=== PATIENT | male | born 1940 | race Caucasian/White ===

== ENCOUNTER 2024-07-07 09:21 | Inpatient (IN) | payer MEDICARE ==
[~2024-07-07] VITALS: Ht 167.6 cm; Wt 95.3 kg
[2024-07-07] VITALS (20 sets, daily range): BP systolic 85–145; BP diastolic 53–79; PULSE 83–104; RESP 18–41; TEMP 97.6–98.7; O2SAT 73–100
[2024-07-07] MEDS: ALBUTEROL/IPRATROPIUM 3 ML NEB NEB ONE (09:55)
[2024-07-07] MEDS: DEXAMETHASONE SOD PHOS 10 MG/1 ML VIAL IV ONE (09:57)
[2024-07-07 10:22] LABS: BASOPHILS % 0.2 % (0.0-1.0); HEMATOCRIT 33.8 % (38.2-49.6); HEMOGLOBIN 11.5 g/dL (14.0-18.0); LYMPHOCYTES # (AUTO) 0.8 (1.0-3.2); LYMPHOCYTES % 5.8 % (18.0-39.1); MEAN CORPUSCULAR HEMOGLOBIN 31.9 pg (28-32); MEAN CORPUSCULAR VOLUME 93.6 fL (81-99); MONOCYTES # (AUTO) 0.9 (0.2-0.8); MONOCYTES % 6.1 % (4.4-11.3); NEUTROPHILS # (AUTO) 12.4 (2.1-6.9); NEUTROPHILS % 85.9 % (38.7-80.0); PLATELET COUNT 181 x10e3/uL (140-360); RED BLOOD COUNT 3.61 x10e6/uL (4.3-5.7); RED CELL DISTRIBUTION WIDTH 14.9 % (11.7-14.4); WHITE BLOOD COUNT 14.47 x10e3/uL (4.8-10.8)
[2024-07-07 10:33] LABS: CORONAVIRUS COVID-19 AG NEGATIVE (NEGATIVE); INFLUENZA A AG NEGATIVE (NEGATIVE); INFLUENZA B AG NEGATIVE (NEGATIVE)
[2024-07-07 11:31] LABS: ALBUMIN 2.8 g/dL (3.5-5.0); ALBUMIN/GLOBULIN RATIO 0.7 (0.8-2.0); ANION GAP 14.1 mmol/L (8-16); BILIRUBIN,TOTAL 0.7 mg/dL (0.2-1.2); CALCIUM 9.7 mg/dL (8.4-10.2); CREATININE, SERUM 1.57 mg/dL (0.72-1.25); TOTAL PROTEIN 6.7 g/dL (6.5-8.1)
[2024-07-07 11:37] LABS: TROPONIN I 0.01 ng/mL (0-0.300)
[2024-07-07 11:41] LABS: POTASSIUM 3.1 mmol/L (3.5-5.1)
[2024-07-07] MEDS: FUROSEMIDE INJ 10 MG/ML 4 ML VIAL IV ONE (12:05)
[2024-07-07] MEDS: CEFTRIAXONE 2 GM in SODIUM CHLORIDE 0.9% 100 ML IV SCH (12:11)
[2024-07-07] MEDS ORDERED: IOPAMIDOL 370 MG/ML 100 ML INFUS..BTL INJ ONE (12:21)
[2024-07-07] MEDS ORDERED: VECURONIUM BROMIDE FOR INJ 20 MG VIAL ONE (12:55)
[2024-07-07] MEDS ORDERED: ETOMIDATE 2 MG/ML 10 ML INJ IV ONE (12:55)
[2024-07-07] MEDS: Doxycycline IV 100 MG in SODIUM CHLORIDE 0.9% 100 ML IV SCH (14:05)
[2024-07-07] MEDS: ALBUTEROL/IPRATROPIUM 3 ML NEB NEB PRN (15:54)
[2024-07-07] MEDS: POTASSIUM CHLORIDE 10MEQ EA PO ONE (18:07)
[2024-07-07] MEDS ORDERED: GUAIFENESIN 200 MG/10 ML UDC PO PRN (18:45)
[2024-07-07] MEDS ORDERED: NIFEDIPINE ER30 MG PO (19:34)
[2024-07-07] MEDS ORDERED: SIMPONI50 MG/0.5 SQ (19:34)
[2024-07-07] MEDS ORDERED: FLOMAX0.4 MG PO (19:34)
[2024-07-07] MEDS ORDERED: VENTOLIN HFA18 GM INH (19:34)
[2024-07-07] MEDS ORDERED: DETROL LA4 MG PO (19:34)
[2024-07-07] MEDS ORDERED: SULFASALAZINE500 MG PO (19:34)
[2024-07-07] MEDS ORDERED: MONTELUKAST SOD10 MG PO (19:34)
[2024-07-07] MEDS ORDERED: ASPIRIN81 MG PO (19:34)
[2024-07-07] MEDS ORDERED: OMEPRAZOLE40 MG PO (19:34)
[2024-07-07] MEDS ORDERED: SIMVASTATIN20 MG PO (19:34)
[2024-07-07] MEDS: FUROSEMIDE INJ 10 MG/ML 2 ML VIAL IV ONE (19:47)
[2024-07-07] MEDS: MAGNESIUM SULFATE 2GM/50ML 50 ML IV ONE (21:14)
[2024-07-07] MEDS ORDERED: ACETAMINOPHEN 325 MG TAB PO PRN (21:15)
[2024-07-07] MEDS ORDERED: BISACODYL 10 MG SUPP PR PRN (21:15)
[2024-07-07] MEDS ORDERED: ONDANSETRON HCL INJ 2MG/ML 2ML 2 MG/ML VIAL IV PRN (21:15)
[2024-07-08] VITALS (73 sets, daily range): BP systolic 84–152; BP diastolic 54–80; PULSE 52–122; RESP 17–28; TEMP 96.7–98.7; O2SAT 87–100
[2024-07-08 00:07] LABS: ABG HCO3 19 mmol/L (22-26); ABG PCO2 44 mmHg (35-45); ABG PH 7.25 (7.35-7.45); ABG PO2 83 mmHg (80-105); ABG TCO2 21
[2024-07-08] MEDS ORDERED: DEXTROSE 50% SYRINGE 50 ML IV PRN (00:45)
[2024-07-08] MEDS ORDERED: MELATONIN 3 MG TAB PO PRN (00:45)
[2024-07-08] MEDS ORDERED: METHYLPREDNISOLONE SOD SUCC 1,000 MG/8 ML VIAL IV SCH (00:45)
[2024-07-08] MEDS: SODIUM CHLORIDE 0.9% 1000ML 1,000 ML ONE (00:48)
[2024-07-08] MEDS: HEPARIN SOD (PORCINE) 5,000 UNIT/ML VIAL SC SCH (00:49)
[2024-07-08] MEDS: Vancomycin IV 1 GM in SODIUM CHLORIDE 0.9% 250ML 250 ML IV ONE (01:21)
[2024-07-08] MEDS: SODIUM CHLORIDE 0.9% 1000ML 1,000 ML IV SCH ×2 (01:22→17:27)
[2024-07-08] MEDS: PROPOFOL IV EMULSION 10MG/ML 100 ML IV PRN (02:04)
[2024-07-08] MEDS: METHYLPREDNISOLONE SOD SUCC 125 MG/2ML VIAL ONE (02:07)
[2024-07-08] MEDS: INSULIN REGULAR, HUMAN 100 UNIT/1 ML SQ SCH (06:54)
[2024-07-08 07:02] LABS: BASOPHILS # (AUTO) 0.1 (0.0-0.1); BASOPHILS % 0.4 % (0.0-1.0); EOSINOPHILS % 0.1 % (0.0-6.0); HEMATOCRIT 30.2 % (38.2-49.6); LYMPHOCYTES # (AUTO) 0.7 (1.0-3.2); LYMPHOCYTES % 4.7 % (18.0-39.1); MEAN CORPUSCULAR HEMOGLOBIN 31.5 pg (28-32); MEAN CORPUSCULAR HGB CONC 33.1 g/dL (31-35); MEAN CORPUSCULAR VOLUME 95.3 fL (81-99); MONOCYTES # (AUTO) 0.7 (0.2-0.8); MONOCYTES % 4.4 % (4.4-11.3); NEUTROPHILS # (AUTO) 13.8 (2.1-6.9); PLATELET COUNT 223 x10e3/uL (140-360); RED BLOOD COUNT 3.17 x10e6/uL (4.3-5.7); RED CELL DISTRIBUTION WIDTH 14.3 % (11.7-14.4); WHITE BLOOD COUNT 15.54 x10e3/uL (4.8-10.8)
[2024-07-08 07:24] LABS: ANION GAP 12.2 mmol/L (8-16); CALCIUM 9.3 mg/dL (8.4-10.2); CREATININE, SERUM 1.7 mg/dL (0.72-1.25); POTASSIUM 3.2 mmol/L (3.5-5.1)
[2024-07-08 07:27] LABS: ABG HCO3 19 mmol/L (22-26); ABG PCO2 37 mmHg (35-45); ABG PH 7.32 (7.35-7.45); ABG PO2 99 mmHg (80-105); ABG TCO2 20
[2024-07-08] MEDS: LACTATED RINGER'S 1,000 ML INJ ONE (07:46)
[2024-07-08] MEDS: SENNOSIDES 8.6 MG TAB PO SCH (09:00)
[2024-07-08] MEDS: MULTIVITAMINS/MINERALS TAB PO SCH (09:00)
[2024-07-08] MEDS ORDERED: FUROSEMIDE INJ 10 MG/ML 4 ML VIAL IV SCH (09:00)
[2024-07-08] MEDS: DOCUSATE SODIUM 100 MG CAP PO SCH (09:00)
[2024-07-08] MEDS: FAMOTIDINE 20 MG/2 ML VIAL IV SCH (10:13)
[2024-07-08] MEDS: CEFTRIAXONE 2 GM in SODIUM CHLORIDE 0.9% 100 ML IV SCH (17:04)
[2024-07-08] MEDS: MUPIROCIN 2% OINT 22 GM TUBE TOP SCH (17:05)
[2024-07-08] MEDS: LORAZEPAM INJ 2 MG/ML VIAL IV ONE (18:31)
[2024-07-09] VITALS (66 sets, daily range): BP systolic 94–161; BP diastolic 53–83; PULSE 22–91; RESP 16–29; TEMP 97–99.2; O2SAT 85–100
[2024-07-09 06:29] LABS: BASOPHILS % 0.2 % (0.0-1.0); HEMATOCRIT 27.4 % (38.2-49.6); HEMOGLOBIN 9.2 g/dL (14.0-18.0); LYMPHOCYTES % 6.6 % (18.0-39.1); MEAN CORPUSCULAR HEMOGLOBIN 31.5 pg (28-32); MEAN CORPUSCULAR HGB CONC 33.6 g/dL (31-35); MEAN CORPUSCULAR VOLUME 93.8 fL (81-99); MONOCYTES # (AUTO) 0.6 (0.2-0.8); MONOCYTES % 3.9 % (4.4-11.3); NEUTROPHILS # (AUTO) 13.6 (2.1-6.9); NEUTROPHILS % 86.2 % (38.7-80.0); PLATELET COUNT 212 x10e3/uL (140-360); RED BLOOD COUNT 2.92 x10e6/uL (4.3-5.7); RED CELL DISTRIBUTION WIDTH 14.4 % (11.7-14.4); WHITE BLOOD COUNT 15.79 x10e3/uL (4.8-10.8)
[2024-07-09 06:41] LABS: ABG HCO3 18 mmol/L (22-26); ABG PCO2 35 mmHg (35-45); ABG PH 7.31 (7.35-7.45); ABG PO2 132 mmHg (80-105); ABG TCO2 19
[2024-07-09 06:43] LABS: ALBUMIN/GLOBULIN RATIO 0.6 (0.8-2.0); ANION GAP 11.3 mmol/L (8-16); BILIRUBIN,TOTAL 0.3 mg/dL (0.2-1.2); CALCIUM 8.9 mg/dL (8.4-10.2); CREATININE, SERUM 1.57 mg/dL (0.72-1.25); TOTAL PROTEIN 5.4 g/dL (6.5-8.1)
[2024-07-09 06:53] LABS: POTASSIUM 3.3 mmol/L (3.5-5.1)
[2024-07-09] MEDS: MULTIVITAMINS/MINERALS TAB NG SCH (08:00)
[2024-07-09] MEDS: DOCUSATE SODIUM LIQD 100 MG/10 ML UDC NG SCH (08:01)
[2024-07-09] MEDS: FAMOTIDINE 20 MG/2 ML VIAL IV SCH (08:01)
[2024-07-09] MEDS: SENNOSIDES 8.6 MG TAB NG SCH (08:01)
[2024-07-09 08:25] LABS: CLARITY,URINE CLOUDY (CLEAR); COLOR,URINE YELLOW (YELLOW); GLUCOSE, URINE NEGATIVE (NEGATIVE); KETONES,URINE NEGATIVE (NEGATIVE); LEUKOCYTE ESTERASE ,URINE NEGATIVE (NEGATIVE); NITRITE,URINE NEGATIVE (NEGATIVE); PH,URINE 5.5 (5 - 7); PROTEIN,URINE DIPSTICK 2+ (NEGATIVE)
[2024-07-09 08:26] LABS: BACTERIA,URINE MODERATE /HPF; BILIRUBIN,URINE NEGATIVE (NEGATIVE); EPITHELIAL CELLS,URINE FEW /LPF; RBC,URINE >50 /HPF (0-5); URINE UROBILINOGEN 0.2 mg/dL (0.2 - 1); WBC,URINE (MAN) 0-5 /HPF (0-5)
[2024-07-09] MEDS: METHYLPREDNISOLONE SOD SUCC 40 MG/ML VIAL 1ML IV SCH (09:29)
[2024-07-09] MEDS: POTASSIUM CHLORIDE 20MEQ/100ML 200 ML IV ONE (09:29)
[2024-07-09] MEDS: SODIUM BICARBONATE 8.4% VIAL 50 ML in SODIUM CHLORIDE 0.45% 1,000 ML IV SCH (10:16)
[2024-07-09 10:17] LABS: ABG HCO3 18 mmol/L (22-26); ABG PCO2 35 mmHg (35-45); ABG PH 7.31 (7.35-7.45); ABG PO2 93 mmHg (80-105); ABG TCO2 19
[2024-07-09 10:20] LABS: ABG HCO3 18 mmol/L (22-26); ABG PCO2 36 mmHg (35-45); ABG PH 7.31 (7.35-7.45); ABG PO2 93 mmHg (80-105); ABG TCO2 19
[2024-07-09 10:52] LABS: EOSINOPHIL SMEAR,URINE NONE SEEN (NONE SEEN)
[2024-07-09 12:29] LABS: ABG HCO3 17 mmol/L (22-26); ABG PCO2 29 mmHg (35-45); ABG PH 7.38 (7.35-7.45); ABG PO2 52 mmHg (80-105); ABG TCO2 18
[2024-07-09] MEDS: SODIUM CHLORIDE 0.9% 1000ML 1,000 ML IV SCH (17:05)
[2024-07-09 21:16] LABS: C-REACTIVE PROTEIN 175 mg/L (0-10); JO-1 ANTIBODY <0.2 AI (0.0-0.9)
[2024-07-10] VITALS (30 sets, daily range): BP systolic 100–184; BP diastolic 67–122; PULSE 73–110; RESP 20–44; TEMP 97.8–98.9; O2SAT 75–99
[2024-07-10] MEDS: FENTANYL CITRATE/PF 100MCG/2 ML INJ IV PRN (00:21)
[2024-07-10 07:10] LABS: BASOPHILS # (AUTO) 0.2 (0.0-0.1); BASOPHILS % 0.8 % (0.0-1.0); HEMATOCRIT 31.3 % (38.2-49.6); HEMOGLOBIN 10.6 g/dL (14.0-18.0); LYMPHOCYTES # (AUTO) 1.7 (1.0-3.2); LYMPHOCYTES % 8.6 % (18.0-39.1); MEAN CORPUSCULAR HEMOGLOBIN 31.3 pg (28-32); MEAN CORPUSCULAR HGB CONC 33.9 g/dL (31-35); MEAN CORPUSCULAR VOLUME 92.3 fL (81-99); MONOCYTES # (AUTO) 0.5 (0.2-0.8); MONOCYTES % 2.6 % (4.4-11.3); NEUTROPHILS # (AUTO) 15.9 (2.1-6.9); PLATELET COUNT 305 x10e3/uL (140-360); RED BLOOD COUNT 3.39 x10e6/uL (4.3-5.7); RED CELL DISTRIBUTION WIDTH 14.7 % (11.7-14.4)
[2024-07-10 07:30] LABS: ALBUMIN 2.3 g/dL (3.5-5.0); ALBUMIN/GLOBULIN RATIO 0.6 (0.8-2.0); BILIRUBIN,TOTAL 0.4 mg/dL (0.2-1.2); CALCIUM 9.6 mg/dL (8.4-10.2); CREATININE, SERUM 1.31 mg/dL (0.72-1.25); POTASSIUM 3.7 mmol/L (3.5-5.1)
[2024-07-10 07:52] LABS: ANION GAP 13.7 mmol/L (8-16)
[2024-07-10] MEDS: SODIUM BICARBONATE 8.4% VIAL 50 ML in DEXTROSE 5% 1,000 ML IV ONE (11:08)
[2024-07-10 11:31] LABS: ANISOCYTOSIS SLIGHT; BAND NEUTROPHILS % (MANUAL) 4 %; LYMPHOCYTES % (MANUAL) 17 % (19-48); METAMYELOCYTES % (MANUAL) 4 % (0-0); MONOCYTES % (MANUAL) 2 % (3.4-9.0); MYELOCYTES % (MANUAL) 2 % (0-0); NEUTROPHILS % (MANUAL) 69 % (40-74); PLATELET ESTIMATE ADEQUATE; PLATELET MORPHOLOGY COMMENT NORMAL; REACTIVE LYMPHOCYTES 2
[2024-07-10] MEDS: NIFEDIPINE CR 30 MG TAB PO SCH (15:30)
[2024-07-10] MEDS: NIFEDIPINE CR 30 MG TAB PO ONE (17:00)
[2024-07-10] MEDS: DEXMEDETOMIDINE 400MCG/NS100ML 100 ML IV PRN (18:20)
[2024-07-10] MEDS: HYDRALAZINE HCL 20 MG/ML VIAL IV PRN (21:04)
[2024-07-10] MEDS ORDERED: LORAZEPAM INJ 2 MG/ML VIAL IV PRN (21:45)
[2024-07-11] VITALS (71 sets, daily range): BP systolic 71–174; BP diastolic 44–80; PULSE 56–107; RESP 20–45; TEMP 97.4–100.2; O2SAT 89–100
[2024-07-11] MEDS: PROPOFOL IV EMULSION 10 MG/ML 50 ML VIAL IV PRN (04:39)
[2024-07-11 05:50] LABS: ABG HCO3 20 mmol/L (22-26); ABG PCO2 38 mmHg (35-45); ABG PH 7.32 (7.35-7.45); ABG PO2 201 mmHg (80-105); ABG TCO2 21
[2024-07-11 07:00] LABS: BASOPHILS # (AUTO) 0.1 (0.0-0.1); BASOPHILS % 0.5 % (0.0-1.0); EOSINOPHILS % 0.1 % (0.0-6.0); HEMATOCRIT 30.8 % (38.2-49.6); HEMOGLOBIN 10.3 g/dL (14.0-18.0); LYMPHOCYTES # (AUTO) 1.2 (1.0-3.2); LYMPHOCYTES % 7.9 % (18.0-39.1); MEAN CORPUSCULAR HGB CONC 33.4 g/dL (31-35); MEAN CORPUSCULAR VOLUME 92.8 fL (81-99); MONOCYTES # (AUTO) 0.2 (0.2-0.8); MONOCYTES % 1.4 % (4.4-11.3); NEUTROPHILS # (AUTO) 13.2 (2.1-6.9); NEUTROPHILS % 83.9 % (38.7-80.0); PLATELET COUNT 242 x10e3/uL (140-360); RED BLOOD COUNT 3.32 x10e6/uL (4.3-5.7); RED CELL DISTRIBUTION WIDTH 14.6 % (11.7-14.4); WHITE BLOOD COUNT 15.73 x10e3/uL (4.8-10.8)
[2024-07-11 07:28] LABS: ALBUMIN 1.9 g/dL (3.5-5.0); ALBUMIN/GLOBULIN RATIO 0.6 (0.8-2.0); ANION GAP 12.9 mmol/L (8-16); BILIRUBIN,TOTAL 0.5 mg/dL (0.2-1.2); CREATININE, SERUM 1.34 mg/dL (0.72-1.25); POTASSIUM 3.9 mmol/L (3.5-5.1); TOTAL PROTEIN 5.1 g/dL (6.5-8.1)
[2024-07-11] MEDS ORDERED: PROPOFOL IV EMULSION 10MG/ML 100 ML ONE (07:37)
[2024-07-11] MEDS: PROPOFOL IV EMULSION 10MG/ML 100 ML IV PRN (08:04)
[2024-07-11] MEDS: MIDAZOLAM HCL 2 MG/2 ML VIAL IV ONE ×3 (08:24→10:11)
[2024-07-11 09:18] LABS: ABG HCO3 19 mmol/L (22-26); ABG PCO2 37 mmHg (35-45); ABG PH 7.32 (7.35-7.45); ABG PO2 99 mmHg (80-105); ABG TCO2 20
[2024-07-11 09:18] LABS: ABG HCO3 19 mmol/L (22-26); ABG PCO2 44 mmHg (35-45); ABG PH 7.25 (7.35-7.45); ABG PO2 83 mmHg (80-105); ABG TCO2 21
[2024-07-11 09:19] LABS: ABG HCO3 18 mmol/L (22-26); ABG PCO2 36 mmHg (35-45); ABG PH 7.31 (7.35-7.45); ABG PO2 93 mmHg (80-105); ABG TCO2 19
[2024-07-11 09:19] LABS: ABG HCO3 17 mmol/L (22-26); ABG PCO2 29 mmHg (35-45); ABG PH 7.38 (7.35-7.45); ABG PO2 52 mmHg (80-105); ABG TCO2 18
[2024-07-11 09:19] LABS: ABG HCO3 18 mmol/L (22-26); ABG PCO2 35 mmHg (35-45); ABG PH 7.31 (7.35-7.45); ABG PO2 132 mmHg (80-105); ABG TCO2 19
[2024-07-11] MEDS: NOREPINEPHRINE 8 MG/D5W 250 ML 250 ML IV SCH (09:56)
[2024-07-11] MEDS: SODIUM BICARBONATE 8.4% SYRING 50 ML in DEXTROSE 5% 1,000 ML IV ONE (11:02)
[2024-07-11 11:57] LABS: LYMPHOCYTES % (MANUAL) 4 % (19-48); METAMYELOCYTES % (MANUAL) 3 % (0-0); MONOCYTES % (MANUAL) 1 % (3.4-9.0); MYELOCYTES % (MANUAL) 2 % (0-0); NEUTROPHILS % (MANUAL) 89 % (40-74); PLATELET ESTIMATE ADEQUATE; PLATELET MORPHOLOGY COMMENT NORMAL; PROMYELOCYTES % (MANUAL) 1 % (0-0); RBC MORPHOLOGY COMMENT NORMAL
[2024-07-12] VITALS (93 sets, daily range): BP systolic 89–131; BP diastolic 50–62; PULSE 55–93; RESP 20–28; TEMP 96.2–98.1; O2SAT 99–100
[2024-07-12 06:53] LABS: BASOPHILS # (AUTO) 0.1 (0.0-0.1); BASOPHILS % 0.6 % (0.0-1.0); EOSINOPHILS % 0.1 % (0.0-6.0); HEMOGLOBIN 10.1 g/dL (14.0-18.0); LYMPHOCYTES # (AUTO) 1.6 (1.0-3.2); LYMPHOCYTES % 7.2 % (18.0-39.1); MEAN CORPUSCULAR HEMOGLOBIN 31.8 pg (28-32); MEAN CORPUSCULAR HGB CONC 32.6 g/dL (31-35); MEAN CORPUSCULAR VOLUME 97.5 fL (81-99); MONOCYTES # (AUTO) 0.4 (0.2-0.8); MONOCYTES % 1.6 % (4.4-11.3); NEUTROPHILS # (AUTO) 17.8 (2.1-6.9); PLATELET COUNT 301 x10e3/uL (140-360); RED BLOOD COUNT 3.18 x10e6/uL (4.3-5.7); RED CELL DISTRIBUTION WIDTH 14.9 % (11.7-14.4); WHITE BLOOD COUNT 22.23 x10e3/uL (4.8-10.8)
[2024-07-12 07:26] LABS: ALBUMIN 1.7 g/dL (3.5-5.0); ALBUMIN/GLOBULIN RATIO 0.5 (0.8-2.0); ANION GAP 13.1 mmol/L (8-16); BILIRUBIN,TOTAL 0.3 mg/dL (0.2-1.2); CALCIUM 8.8 mg/dL (8.4-10.2); CREATININE, SERUM 1.84 mg/dL (0.72-1.25); POTASSIUM 4.1 mmol/L (3.5-5.1); TOTAL PROTEIN 5.4 g/dL (6.5-8.1)
[2024-07-12] MEDS: SODIUM BICARBONATE 8.4% SYRING 50 ML in DEXTROSE 5% 1,000 ML IV SCH (07:55)
[2024-07-12 08:49] LABS: ABG HCO3 23 mmol/L (22-26); ABG PCO2 44 mmHg (35-45); ABG PH 7.32 (7.35-7.45); ABG PO2 184 mmHg (80-105); ABG TCO2 24
[2024-07-12 13:19] LABS: BAND NEUTROPHILS % (MANUAL) 1 %; BASOPHILS % (MANUAL) 1 % (0-1.5); LYMPHOCYTES % (MANUAL) 11 % (19-48); MONOCYTES % (MANUAL) 1 % (3.4-9.0); MYELOCYTES % (MANUAL) 2 % (0-0); NEUTROPHILS % (MANUAL) 84 % (40-74); PLATELET ESTIMATE ADEQUATE; PLATELET MORPHOLOGY COMMENT NORMAL; RBC MORPHOLOGY COMMENT NORMAL
[2024-07-12 15:12] LABS: MYCOPLASMA PNEUMO IGG 217 U/mL (0-99); MYCOPLASMA PNEUMO IGM 3302 U/mL (0-769)
[2024-07-12] MEDS: PROPOFOL IV EMULSION 10MG/ML 100 ML ONE (19:11)
[2024-07-13] VITALS (87 sets, daily range): BP systolic 94–146; BP diastolic 46–67; PULSE 55–85; RESP 17–28; TEMP 97.4–98.4; O2SAT 99–100
[2024-07-13 06:37] LABS: BASOPHILS # (AUTO) 0.1 (0.0-0.1); BASOPHILS % 0.4 % (0.0-1.0); EOSINOPHILS % 0.1 % (0.0-6.0); HEMATOCRIT 29.5 % (38.2-49.6); HEMOGLOBIN 9.9 g/dL (14.0-18.0); LYMPHOCYTES # (AUTO) 1.2 (1.0-3.2); LYMPHOCYTES % 6.4 % (18.0-39.1); MEAN CORPUSCULAR HEMOGLOBIN 31.4 pg (28-32); MEAN CORPUSCULAR HGB CONC 33.6 g/dL (31-35); MEAN CORPUSCULAR VOLUME 93.7 fL (81-99); MONOCYTES # (AUTO) 0.5 (0.2-0.8); MONOCYTES % 2.8 % (4.4-11.3); NEUTROPHILS # (AUTO) 14.7 (2.1-6.9); NEUTROPHILS % 79.7 % (38.7-80.0); PLATELET COUNT 302 x10e3/uL (140-360); RED BLOOD COUNT 3.15 x10e6/uL (4.3-5.7); RED CELL DISTRIBUTION WIDTH 14.8 % (11.7-14.4); WHITE BLOOD COUNT 18.39 x10e3/uL (4.8-10.8)
[2024-07-13 07:06] LABS: ABG HCO3 22 mmol/L (22-26); ABG PCO2 42 mmHg (35-45); ABG PH 7.33 (7.35-7.45); ABG PO2 121 mmHg (80-105); ABG TCO2 23
[2024-07-13 08:04] LABS: ALBUMIN 1.7 g/dL (3.5-5.0); ALBUMIN/GLOBULIN RATIO 0.5 (0.8-2.0); ANION GAP 13.3 mmol/L (8-16); BILIRUBIN,TOTAL 0.3 mg/dL (0.2-1.2); CALCIUM 8.8 mg/dL (8.4-10.2); CREATININE, SERUM 1.72 mg/dL (0.72-1.25); POTASSIUM 4.3 mmol/L (3.5-5.1); TOTAL PROTEIN 5.4 g/dL (6.5-8.1)
[2024-07-13] MEDS: FUROSEMIDE INJ 10 MG/ML 4 ML VIAL IV ONE (08:28)
[2024-07-13] MEDS: HEPARIN SOD (PORCINE) 5,000 UNIT/ML VIAL SC SCH (15:19)
[2024-07-14] VITALS (59 sets, daily range): BP systolic 79–177; BP diastolic 42–69; PULSE 53–108; RESP 17–29; TEMP 97.1–98.3; O2SAT 94–100
[2024-07-14 06:53] LABS: BASOPHILS # (AUTO) 0.1 (0.0-0.1); BASOPHILS % 0.3 % (0.0-1.0); EOSINOPHILS % 0.1 % (0.0-6.0); HEMATOCRIT 33.2 % (38.2-49.6); HEMOGLOBIN 11.2 g/dL (14.0-18.0); LYMPHOCYTES # (AUTO) 1.4 (1.0-3.2); LYMPHOCYTES % 9.8 % (18.0-39.1); MEAN CORPUSCULAR HEMOGLOBIN 31.9 pg (28-32); MEAN CORPUSCULAR HGB CONC 33.7 g/dL (31-35); MEAN CORPUSCULAR VOLUME 94.6 fL (81-99); MONOCYTES # (AUTO) 0.5 (0.2-0.8); MONOCYTES % 3.5 % (4.4-11.3); NEUTROPHILS # (AUTO) 10.8 (2.1-6.9); NEUTROPHILS % 75.1 % (38.7-80.0); PLATELET COUNT 322 x10e3/uL (140-360); RED BLOOD COUNT 3.51 x10e6/uL (4.3-5.7); RED CELL DISTRIBUTION WIDTH 14.8 % (11.7-14.4)
[2024-07-14 07:18] LABS: ALBUMIN 1.8 g/dL (3.5-5.0); ALBUMIN/GLOBULIN RATIO 0.4 (0.8-2.0); ANION GAP 15.3 mmol/L (8-16); BILIRUBIN,TOTAL 0.3 mg/dL (0.2-1.2); CALCIUM 8.7 mg/dL (8.4-10.2); CREATININE, SERUM 1.52 mg/dL (0.72-1.25); POTASSIUM 4.3 mmol/L (3.5-5.1); TOTAL PROTEIN 6.1 g/dL (6.5-8.1)
[2024-07-14 08:02] LABS: ABG HCO3 24 mmol/L (22-26); ABG PCO2 38 mmHg (35-45); ABG PH 7.42 (7.35-7.45); ABG PO2 100 mmHg (80-105); ABG TCO2 25
[2024-07-14 11:12] LABS: ABG HCO3 23 mmol/L (22-26); ABG PCO2 41 mmHg (35-45); ABG PH 7.35 (7.35-7.45); ABG PO2 100 mmHg (80-105); ABG TCO2 24
[2024-07-14 18:14] LABS: ABG HCO3 23 mmol/L (22-26); ABG PCO2 40 mmHg (35-45); ABG PH 7.36 (7.35-7.45); ABG PO2 82 mmHg (80-105); ABG TCO2 24
[2024-07-15] VITALS (90 sets, daily range): BP systolic 82–151; BP diastolic 47–105; PULSE 79–109; RESP 18–34; TEMP 96.8–101.3; O2SAT 97–100
[2024-07-15 06:53] LABS: BASOPHILS # (AUTO) 0.1 (0.0-0.1); BASOPHILS % 0.4 % (0.0-1.0); EOSINOPHILS # (AUTO) 0.4 (0.0-0.4); EOSINOPHILS % 2.1 % (0.0-6.0); HEMATOCRIT 33.7 % (38.2-49.6); HEMOGLOBIN 10.9 g/dL (14.0-18.0); LYMPHOCYTES # (AUTO) 2.7 (1.0-3.2); LYMPHOCYTES % 15.8 % (18.0-39.1); MEAN CORPUSCULAR HEMOGLOBIN 31.5 pg (28-32); MEAN CORPUSCULAR HGB CONC 32.3 g/dL (31-35); MEAN CORPUSCULAR VOLUME 97.4 fL (81-99); MONOCYTES # (AUTO) 0.8 (0.2-0.8); MONOCYTES % 4.7 % (4.4-11.3); NEUTROPHILS # (AUTO) 11.3 (2.1-6.9); NEUTROPHILS % 67.4 % (38.7-80.0); PLATELET COUNT 336 x10e3/uL (140-360); RED BLOOD COUNT 3.46 x10e6/uL (4.3-5.7); RED CELL DISTRIBUTION WIDTH 15.1 % (11.7-14.4)
[2024-07-15 07:20] LABS: ALBUMIN 1.8 g/dL (3.5-5.0); ALBUMIN/GLOBULIN RATIO 0.4 (0.8-2.0); BILIRUBIN,TOTAL 0.3 mg/dL (0.2-1.2); CALCIUM 8.6 mg/dL (8.4-10.2); CREATININE, SERUM 1.36 mg/dL (0.72-1.25); TOTAL PROTEIN 5.9 g/dL (6.5-8.1)
[2024-07-15] MEDS: ALBUMIN 5% 0.05 GM/ML BTL IV ONE (07:47)
[2024-07-15] MEDS: METHYLPREDNISOLONE SOD SUCC 40 MG/ML VIAL 1ML IV SCH (08:01)
[2024-07-15 15:15] LABS: CHLAMYDIA TRACHOMATIS IGM <0.8 index (0.0-0.7); CHLAMYDOPHILA PSITTACI IGM <1:10 (Neg:<1:10)
[2024-07-15] MEDS: ACETAMINOPHEN 325 MG/10 ML UDC NG PRN (23:10)
[2024-07-16] VITALS (64 sets, daily range): BP systolic 93–144; BP diastolic 36–71; PULSE 69–102; RESP 18–30; TEMP 97.9–100.3; O2SAT 98–100
[2024-07-16 06:43] LABS: BASOPHILS # (AUTO) 0.1 (0.0-0.1); BASOPHILS % 0.2 % (0.0-1.0); EOSINOPHILS # (AUTO) 0.2 (0.0-0.4); EOSINOPHILS % 0.5 % (0.0-6.0); HEMATOCRIT 32.1 % (38.2-49.6); HEMOGLOBIN 10.6 g/dL (14.0-18.0); LYMPHOCYTES # (AUTO) 1.4 (1.0-3.2); LYMPHOCYTES % 3.9 % (18.0-39.1); MEAN CORPUSCULAR HEMOGLOBIN 31.9 pg (28-32); MEAN CORPUSCULAR VOLUME 96.7 fL (81-99); MONOCYTES # (AUTO) 0.9 (0.2-0.8); MONOCYTES % 2.6 % (4.4-11.3); NEUTROPHILS # (AUTO) 32.7 (2.1-6.9); PLATELET COUNT 311 x10e3/uL (140-360); RED BLOOD COUNT 3.32 x10e6/uL (4.3-5.7); RED CELL DISTRIBUTION WIDTH 15.2 % (11.7-14.4); WHITE BLOOD COUNT 36.78 x10e3/uL (4.8-10.8)
[2024-07-16 07:13] LABS: ANION GAP 15.7 mmol/L (8-16); CALCIUM 9.1 mg/dL (8.4-10.2); CREATININE, SERUM 1.4 mg/dL (0.72-1.25); MAGNESIUM 2.4 MG/DL (1.3-2.1); POTASSIUM 4.7 mmol/L (3.5-5.1)
[2024-07-16] MEDS: METRONIDAZOLE 500MG/NS 100ML 100 ML IV SCH (08:07)
[2024-07-16] MEDS: METHYLPREDNISOLONE SOD SUCC 40 MG/ML VIAL 1ML IV SCH (08:08)
[2024-07-16] MEDS: SODIUM CHLORIDE 0.45% 500 ML IV ONE (09:02)
[2024-07-16] MEDS ORDERED: SUCCINYLCHOLINE CHLORIDE 20 MG/ML 10ML VIAL ONE (09:58)
[2024-07-16] MEDS ORDERED: ETOMIDATE 2 MG/ML 10 ML INJ IV ONE (09:58)
[2024-07-16] MEDS ORDERED: IOPAMIDOL 370 MG/ML 100 ML INFUS..BTL INJ ONE (12:18)
[2024-07-16 14:16] LABS: BAND NEUTROPHILS % (MANUAL) 22 %; LYMPHOCYTES % (MANUAL) 3 % (19-48); MONOCYTES % (MANUAL) 1 % (3.4-9.0); NEUTROPHILS % (MANUAL) 74 % (40-74); PLATELET ESTIMATE ADEQUATE; PLATELET MORPHOLOGY COMMENT NORMAL; RBC MORPHOLOGY COMMENT NORMAL
[2024-07-17] VITALS (37 sets, daily range): BP systolic 98–165; BP diastolic 43–74; PULSE 65–85; RESP 17–31; TEMP 97.7–98.2; O2SAT 98–100
[2024-07-17 07:13] LABS: BASOPHILS % 0.2 % (0.0-1.0); EOSINOPHILS # (AUTO) 0.2 (0.0-0.4); EOSINOPHILS % 0.9 % (0.0-6.0); HEMATOCRIT 29.6 % (38.2-49.6); HEMOGLOBIN 9.4 g/dL (14.0-18.0); LYMPHOCYTES # (AUTO) 1.4 (1.0-3.2); LYMPHOCYTES % 5.6 % (18.0-39.1); MEAN CORPUSCULAR HEMOGLOBIN 31.4 pg (28-32); MEAN CORPUSCULAR HGB CONC 31.8 g/dL (31-35); MONOCYTES # (AUTO) 0.9 (0.2-0.8); MONOCYTES % 3.6 % (4.4-11.3); NEUTROPHILS # (AUTO) 22.3 (2.1-6.9); NEUTROPHILS % 87.3 % (38.7-80.0); PLATELET COUNT 259 x10e3/uL (140-360); RED BLOOD COUNT 2.99 x10e6/uL (4.3-5.7); RED CELL DISTRIBUTION WIDTH 15.3 % (11.7-14.4); WHITE BLOOD COUNT 25.52 x10e3/uL (4.8-10.8)
[2024-07-17 07:37] LABS: ALBUMIN 1.7 g/dL (3.5-5.0); ALBUMIN/GLOBULIN RATIO 0.5 (0.8-2.0); ANION GAP 11.3 mmol/L (8-16); BILIRUBIN,TOTAL 0.4 mg/dL (0.2-1.2); CALCIUM 9.3 mg/dL (8.4-10.2); CREATININE, SERUM 1.32 mg/dL (0.72-1.25); POTASSIUM 4.3 mmol/L (3.5-5.1); TOTAL PROTEIN 5.3 g/dL (6.5-8.1)
[2024-07-18] VITALS (25 sets, daily range): BP systolic 86–139; BP diastolic 41–64; PULSE 61–82; RESP 18–27; TEMP 97.7–98.7; O2SAT 88–100
[2024-07-18 06:07] LABS: BASOPHILS % 0.2 % (0.0-1.0); EOSINOPHILS # (AUTO) 0.1 (0.0-0.4); EOSINOPHILS % 0.4 % (0.0-6.0); HEMATOCRIT 29.1 % (38.2-49.6); HEMOGLOBIN 9.3 g/dL (14.0-18.0); LYMPHOCYTES # (AUTO) 1.5 (1.0-3.2); LYMPHOCYTES % 7.7 % (18.0-39.1); MEAN CORPUSCULAR HEMOGLOBIN 31.2 pg (28-32); MEAN CORPUSCULAR VOLUME 97.7 fL (81-99); MONOCYTES # (AUTO) 1.2 (0.2-0.8); MONOCYTES % 6.1 % (4.4-11.3); NEUTROPHILS # (AUTO) 16.2 (2.1-6.9); NEUTROPHILS % 81.2 % (38.7-80.0); PLATELET COUNT 287 x10e3/uL (140-360); RED BLOOD COUNT 2.98 x10e6/uL (4.3-5.7); RED CELL DISTRIBUTION WIDTH 15.6 % (11.7-14.4); WHITE BLOOD COUNT 19.89 x10e3/uL (4.8-10.8)
[2024-07-18 06:34] LABS: ALBUMIN 1.8 g/dL (3.5-5.0); ALBUMIN/GLOBULIN RATIO 0.5 (0.8-2.0); ANION GAP 12.8 mmol/L (8-16); BILIRUBIN,TOTAL 0.4 mg/dL (0.2-1.2); CALCIUM 9.4 mg/dL (8.4-10.2); CREATININE, SERUM 1.45 mg/dL (0.72-1.25); POTASSIUM 4.8 mmol/L (3.5-5.1); TOTAL PROTEIN 5.5 g/dL (6.5-8.1)
[2024-07-18 07:41] LABS: ABG HCO3 23 mmol/L (22-26); ABG PCO2 40 mmHg (35-45); ABG PH 7.36 (7.35-7.45); ABG PO2 82 mmHg (80-105); ABG TCO2 24
[2024-07-18 07:50] LABS: ABG HCO3 23 mmol/L (22-26); ABG PCO2 41 mmHg (35-45); ABG PH 7.35 (7.35-7.45); ABG PO2 100 mmHg (80-105); ABG TCO2 24
[2024-07-18 07:50] LABS: ABG HCO3 20 mmol/L (22-26); ABG PCO2 38 mmHg (35-45); ABG PH 7.32 (7.35-7.45); ABG PO2 201 mmHg (80-105); ABG TCO2 21
[2024-07-18 07:50] LABS: ABG HCO3 24 mmol/L (22-26); ABG PCO2 38 mmHg (35-45); ABG PH 7.42 (7.35-7.45); ABG PO2 100 mmHg (80-105); ABG TCO2 25
[2024-07-18 07:50] LABS: ABG HCO3 23 mmol/L (22-26); ABG PCO2 44 mmHg (35-45); ABG PH 7.32 (7.35-7.45); ABG PO2 184 mmHg (80-105); ABG TCO2 24
[2024-07-18 07:50] LABS: ABG HCO3 22 mmol/L (22-26); ABG PCO2 42 mmHg (35-45); ABG PH 7.33 (7.35-7.45); ABG PO2 121 mmHg (80-105); ABG TCO2 23
[2024-07-18 08:23] LABS: ABG HCO3 21 mmol/L (22-26); ABG PCO2 44 mmHg (35-45); ABG PO2 70 mmHg (80-105); ABG TCO2 23
[2024-07-18] MEDS: PROPOFOL IV EMULSION 10MG/ML 100 ML IV PRN (08:55)
[2024-07-18] MEDS ORDERED: CEFEPIME HCL 1 GM VIAL ONE (19:54)
[2024-07-19] VITALS (25 sets, daily range): BP systolic 94–167; BP diastolic 47–112; PULSE 60–86; RESP 18–29; TEMP 97.6–98.3; O2SAT 95–100
[2024-07-19 05:35] LABS: ABG HCO3 21 mmol/L (22-26); ABG PCO2 44 mmHg (35-45); ABG PO2 70 mmHg (80-105); ABG TCO2 23
[2024-07-19 07:03] LABS: BASOPHILS % 0.3 % (0.0-1.0); EOSINOPHILS # (AUTO) 0.2 (0.0-0.4); EOSINOPHILS % 1.4 % (0.0-6.0); HEMATOCRIT 27.7 % (38.2-49.6); LYMPHOCYTES # (AUTO) 1.6 (1.0-3.2); LYMPHOCYTES % 11.5 % (18.0-39.1); MEAN CORPUSCULAR HEMOGLOBIN 32.3 pg (28-32); MEAN CORPUSCULAR HGB CONC 32.5 g/dL (31-35); MEAN CORPUSCULAR VOLUME 99.3 fL (81-99); MONOCYTES # (AUTO) 1.2 (0.2-0.8); MONOCYTES % 8.6 % (4.4-11.3); NEUTROPHILS % 72.8 % (38.7-80.0); PLATELET COUNT 266 x10e3/uL (140-360); RED BLOOD COUNT 2.79 x10e6/uL (4.3-5.7); RED CELL DISTRIBUTION WIDTH 15.6 % (11.7-14.4); WHITE BLOOD COUNT 13.78 x10e3/uL (4.8-10.8)
[2024-07-19 07:16] LABS: ALBUMIN 1.6 g/dL (3.5-5.0); ALBUMIN/GLOBULIN RATIO 0.5 (0.8-2.0); ANION GAP 13.8 mmol/L (8-16); BILIRUBIN,TOTAL 0.3 mg/dL (0.2-1.2); CALCIUM 7.6 mg/dL (8.4-10.2); CREATININE, SERUM 1.13 mg/dL (0.72-1.25); POTASSIUM 3.8 mmol/L (3.5-5.1)
[2024-07-19 08:17] LABS: ABG HCO3 21 mmol/L (22-26); ABG PCO2 44 mmHg (35-45); ABG PH 7.28 (7.35-7.45); ABG PO2 99 mmHg (80-105); ABG TCO2 22
[2024-07-19] MEDS: SODIUM BICARBONATE 8.4% VIAL 50 ML in SODIUM CHLORIDE 0.45% 1,000 ML IV ONE (09:19)
[2024-07-19] MEDS: PROPOFOL IV EMULSION 10MG/ML 100 ML IV PRN (18:14)
[2024-07-20] VITALS (27 sets, daily range): BP systolic 91–128; BP diastolic 45–66; PULSE 57–88; RESP 18–30; TEMP 98–98.9; O2SAT 97–100
[2024-07-20 06:39] LABS: BASOPHILS % 0.3 % (0.0-1.0); EOSINOPHILS # (AUTO) 0.2 (0.0-0.4); EOSINOPHILS % 1.3 % (0.0-6.0); HEMOGLOBIN 8.9 g/dL (14.0-18.0); LYMPHOCYTES # (AUTO) 1.2 (1.0-3.2); LYMPHOCYTES % 9.2 % (18.0-39.1); MEAN CORPUSCULAR HEMOGLOBIN 31.6 pg (28-32); MEAN CORPUSCULAR HGB CONC 31.8 g/dL (31-35); MEAN CORPUSCULAR VOLUME 99.3 fL (81-99); MONOCYTES # (AUTO) 1.2 (0.2-0.8); MONOCYTES % 9.7 % (4.4-11.3); NEUTROPHILS # (AUTO) 9.5 (2.1-6.9); NEUTROPHILS % 74.3 % (38.7-80.0); PLATELET COUNT 248 x10e3/uL (140-360); RED BLOOD COUNT 2.82 x10e6/uL (4.3-5.7); RED CELL DISTRIBUTION WIDTH 15.5 % (11.7-14.4); WHITE BLOOD COUNT 12.77 x10e3/uL (4.8-10.8)
[2024-07-20 07:14] LABS: ALBUMIN 1.8 g/dL (3.5-5.0); ALBUMIN/GLOBULIN RATIO 0.5 (0.8-2.0); ANION GAP 12.6 mmol/L (8-16); BILIRUBIN,TOTAL 0.3 mg/dL (0.2-1.2); CALCIUM 8.2 mg/dL (8.4-10.2); CREATININE, SERUM 1.1 mg/dL (0.72-1.25); POTASSIUM 4.6 mmol/L (3.5-5.1); TOTAL PROTEIN 5.4 g/dL (6.5-8.1)
[2024-07-20] MEDS: ALBUMIN 25% 25GM 100ML 0.25 GM/ML BTL IV ONE (08:16)
[2024-07-20] MEDS: DEXMEDETOMIDINE 400MCG/NS100ML 100 ML IV PRN (10:54)
[2024-07-20 14:41] LABS: ABG HCO3 22 mmol/L (22-26); ABG PCO2 44 mmHg (35-45); ABG PH 7.31 (7.35-7.45); ABG PO2 109 mmHg (80-105); ABG TCO2 23
[2024-07-21] VITALS (32 sets, daily range): BP systolic 107–151; BP diastolic 47–63; PULSE 66–89; RESP 19–28; TEMP 98.5–99.8; O2SAT 99–100
[2024-07-21 07:07] LABS: BASOPHILS # (AUTO) 0.1 (0.0-0.1); BASOPHILS % 0.4 % (0.0-1.0); EOSINOPHILS # (AUTO) 0.2 (0.0-0.4); EOSINOPHILS % 1.7 % (0.0-6.0); HEMATOCRIT 28.7 % (38.2-49.6); LYMPHOCYTES # (AUTO) 1.7 (1.0-3.2); LYMPHOCYTES % 11.9 % (18.0-39.1); MEAN CORPUSCULAR HGB CONC 31.4 g/dL (31-35); MONOCYTES # (AUTO) 1.3 (0.2-0.8); MONOCYTES % 9.3 % (4.4-11.3); NEUTROPHILS # (AUTO) 10.1 (2.1-6.9); NEUTROPHILS % 71.7 % (38.7-80.0); PLATELET COUNT 217 x10e3/uL (140-360); RED CELL DISTRIBUTION WIDTH 15.6 % (11.7-14.4); WHITE BLOOD COUNT 14.15 x10e3/uL (4.8-10.8)
[2024-07-21 07:41] LABS: ALBUMIN 2.1 g/dL (3.5-5.0); ALBUMIN/GLOBULIN RATIO 0.6 (0.8-2.0); ANION GAP 13.6 mmol/L (8-16); BILIRUBIN,TOTAL 0.5 mg/dL (0.2-1.2); CALCIUM 8.4 mg/dL (8.4-10.2); CREATININE, SERUM 1.19 mg/dL (0.72-1.25); POTASSIUM 4.6 mmol/L (3.5-5.1); TOTAL PROTEIN 5.4 g/dL (6.5-8.1)
[2024-07-21] MEDS: SODIUM BICARBONATE 8.4% VIAL 50 ML in SODIUM CHLORIDE 0.45% 1,000 ML IV ONE (17:41)
[2024-07-22] VITALS (50 sets, daily range): BP systolic 114–151; BP diastolic 52–74; PULSE 67–88; RESP 17–27; TEMP 97.8–99.2; O2SAT 98–100
[2024-07-22 06:28] LABS: BASOPHILS % 0.3 % (0.0-1.0); EOSINOPHILS # (AUTO) 0.2 (0.0-0.4); EOSINOPHILS % 1.5 % (0.0-6.0); HEMATOCRIT 28.7 % (38.2-49.6); HEMOGLOBIN 9.1 g/dL (14.0-18.0); LYMPHOCYTES # (AUTO) 1.1 (1.0-3.2); LYMPHOCYTES % 8.2 % (18.0-39.1); MEAN CORPUSCULAR HEMOGLOBIN 31.4 pg (28-32); MEAN CORPUSCULAR HGB CONC 31.7 g/dL (31-35); MONOCYTES % 7.7 % (4.4-11.3); NEUTROPHILS # (AUTO) 10.6 (2.1-6.9); NEUTROPHILS % 78.3 % (38.7-80.0); PLATELET COUNT 184 x10e3/uL (140-360); RED CELL DISTRIBUTION WIDTH 15.7 % (11.7-14.4); WHITE BLOOD COUNT 13.56 x10e3/uL (4.8-10.8)
[2024-07-22 06:44] LABS: ALBUMIN 1.9 g/dL (3.5-5.0); ALBUMIN/GLOBULIN RATIO 0.5 (0.8-2.0); ANION GAP 12.1 mmol/L (8-16); BILIRUBIN,TOTAL 0.4 mg/dL (0.2-1.2); CALCIUM 9.4 mg/dL (8.4-10.2); CREATININE, SERUM 1.28 mg/dL (0.72-1.25); POTASSIUM 5.1 mmol/L (3.5-5.1); TOTAL PROTEIN 5.9 g/dL (6.5-8.1)
[2024-07-22] MEDS: SODIUM CHLORIDE 0.45% 1,000 ML IV ONE (09:23)
[2024-07-23] VITALS (30 sets, daily range): BP systolic 99–124; BP diastolic 45–60; PULSE 65–84; RESP 14–26; TEMP 97.2–99.2; O2SAT 99–100
[2024-07-23 07:17] LABS: BASOPHILS % 0.3 % (0.0-1.0); EOSINOPHILS # (AUTO) 0.3 (0.0-0.4); HEMATOCRIT 28.9 % (38.2-49.6); HEMOGLOBIN 8.9 g/dL (14.0-18.0); LYMPHOCYTES # (AUTO) 1.3 (1.0-3.2); LYMPHOCYTES % 10.5 % (18.0-39.1); MEAN CORPUSCULAR HEMOGLOBIN 30.8 pg (28-32); MEAN CORPUSCULAR HGB CONC 30.8 g/dL (31-35); MONOCYTES # (AUTO) 0.9 (0.2-0.8); MONOCYTES % 6.9 % (4.4-11.3); NEUTROPHILS # (AUTO) 9.6 (2.1-6.9); NEUTROPHILS % 76.9 % (38.7-80.0); PLATELET COUNT 172 x10e3/uL (140-360); RED BLOOD COUNT 2.89 x10e6/uL (4.3-5.7); RED CELL DISTRIBUTION WIDTH 15.9 % (11.7-14.4); WHITE BLOOD COUNT 12.54 x10e3/uL (4.8-10.8)
[2024-07-23 07:30] LABS: ALBUMIN/GLOBULIN RATIO 0.5 (0.8-2.0); ANION GAP 11.8 mmol/L (8-16); BILIRUBIN,TOTAL 0.4 mg/dL (0.2-1.2); CALCIUM 8.9 mg/dL (8.4-10.2); CREATININE, SERUM 1.43 mg/dL (0.72-1.25); POTASSIUM 4.8 mmol/L (3.5-5.1); TOTAL PROTEIN 5.8 g/dL (6.5-8.1)
[2024-07-23] MEDS: SODIUM CHLORIDE 0.45% 1,000 ML IV ONE (08:14)
[2024-07-23 10:31] LABS: ABG PCO2 36 mmHg (35-45); ABG PH 7.39 (7.35-7.45)
[2024-07-23 10:32] LABS: ABG HCO3 22 mmol/L (22-26); ABG PO2 134 mmHg (80-105); ABG TCO2 23
[2024-07-23] MEDS: DEXTROSE 5% 1,000 ML IV SCH (11:08)
[2024-07-23] MEDS: ENOXAPARIN SOD INJ 40 MG/0.4 ML SYR SC SCH (17:01)
[2024-07-24] VITALS (24 sets, daily range): BP systolic 103–129; BP diastolic 47–62; PULSE 66–83; RESP 15–26; TEMP 97.1–98.5; O2SAT 100
[2024-07-24 06:28] LABS: BASOPHILS % 0.3 % (0.0-1.0); EOSINOPHILS # (AUTO) 0.3 (0.0-0.4); EOSINOPHILS % 2.8 % (0.0-6.0); HEMATOCRIT 26.9 % (38.2-49.6); HEMOGLOBIN 8.3 g/dL (14.0-18.0); LYMPHOCYTES # (AUTO) 1.4 (1.0-3.2); LYMPHOCYTES % 13.1 % (18.0-39.1); MEAN CORPUSCULAR HEMOGLOBIN 31.1 pg (28-32); MEAN CORPUSCULAR HGB CONC 30.9 g/dL (31-35); MEAN CORPUSCULAR VOLUME 100.7 fL (81-99); MONOCYTES # (AUTO) 0.7 (0.2-0.8); MONOCYTES % 6.5 % (4.4-11.3); NEUTROPHILS # (AUTO) 7.9 (2.1-6.9); NEUTROPHILS % 74.9 % (38.7-80.0); PLATELET COUNT 128 x10e3/uL (140-360); RED BLOOD COUNT 2.67 x10e6/uL (4.3-5.7); RED CELL DISTRIBUTION WIDTH 15.6 % (11.7-14.4); WHITE BLOOD COUNT 10.59 x10e3/uL (4.8-10.8)
[2024-07-24 06:46] LABS: ALBUMIN 1.7 g/dL (3.5-5.0); ALBUMIN/GLOBULIN RATIO 0.5 (0.8-2.0); ANION GAP 9.2 mmol/L (8-16); BILIRUBIN,TOTAL 0.3 mg/dL (0.2-1.2); CALCIUM 8.6 mg/dL (8.4-10.2); CREATININE, SERUM 1.49 mg/dL (0.72-1.25); POTASSIUM 4.2 mmol/L (3.5-5.1); TOTAL PROTEIN 5.4 g/dL (6.5-8.1)
[2024-07-24] MEDS: NYSTATIN SUSPENSION 5 ML UDC PO SCH (13:58)
[2024-07-25] VITALS (24 sets, daily range): BP systolic 107–155; BP diastolic 50–110; PULSE 68–91; RESP 17–28; TEMP 96.5–98; O2SAT 100
[2024-07-25 05:34] LABS: ABG HCO3 22 mmol/L (22-26); ABG PCO2 36 mmHg (35-45); ABG PH 7.39 (7.35-7.45); ABG PO2 134 mmHg (80-105); ABG TCO2 23
[2024-07-25 05:35] LABS: ABG HCO3 22 mmol/L (22-26); ABG PCO2 44 mmHg (35-45); ABG PH 7.31 (7.35-7.45); ABG PO2 109 mmHg (80-105); ABG TCO2 23
[2024-07-25 05:35] LABS: ABG HCO3 21 mmol/L (22-26); ABG PCO2 44 mmHg (35-45); ABG PH 7.28 (7.35-7.45); ABG PO2 99 mmHg (80-105); ABG TCO2 22
[2024-07-25 06:39] LABS: BASOPHILS % 0.2 % (0.0-1.0); EOSINOPHILS # (AUTO) 0.4 (0.0-0.4); EOSINOPHILS % 3.9 % (0.0-6.0); HEMATOCRIT 27.5 % (38.2-49.6); HEMOGLOBIN 8.7 g/dL (14.0-18.0); LYMPHOCYTES # (AUTO) 1.5 (1.0-3.2); LYMPHOCYTES % 14.3 % (18.0-39.1); MEAN CORPUSCULAR HEMOGLOBIN 31.3 pg (28-32); MEAN CORPUSCULAR HGB CONC 31.6 g/dL (31-35); MEAN CORPUSCULAR VOLUME 98.9 fL (81-99); MONOCYTES # (AUTO) 0.6 (0.2-0.8); MONOCYTES % 5.9 % (4.4-11.3); NEUTROPHILS # (AUTO) 7.5 (2.1-6.9); NEUTROPHILS % 73.7 % (38.7-80.0); PLATELET COUNT 137 x10e3/uL (140-360); RED BLOOD COUNT 2.78 x10e6/uL (4.3-5.7); RED CELL DISTRIBUTION WIDTH 15.3 % (11.7-14.4); WHITE BLOOD COUNT 10.11 x10e3/uL (4.8-10.8)
[2024-07-25 07:33] LABS: ALBUMIN 1.8 g/dL (3.5-5.0); ALBUMIN/GLOBULIN RATIO 0.5 (0.8-2.0); ANION GAP 10.7 mmol/L (8-16); BILIRUBIN,TOTAL 0.5 mg/dL (0.2-1.2); CALCIUM 9.2 mg/dL (8.4-10.2); CREATININE, SERUM 1.5 mg/dL (0.72-1.25); POTASSIUM 4.7 mmol/L (3.5-5.1); TOTAL PROTEIN 5.8 g/dL (6.5-8.1)
[2024-07-26] VITALS (28 sets, daily range): BP systolic 114–151; BP diastolic 46–74; PULSE 67–93; RESP 17–28; TEMP 97.9–99.6; O2SAT 98–100
[2024-07-26 07:12] LABS: BASOPHILS # (AUTO) 0.1 (0.0-0.1); BASOPHILS % 0.4 % (0.0-1.0); EOSINOPHILS # (AUTO) 0.4 (0.0-0.4); EOSINOPHILS % 2.9 % (0.0-6.0); HEMOGLOBIN 9.3 g/dL (14.0-18.0); LYMPHOCYTES % 8.2 % (18.0-39.1); MEAN CORPUSCULAR HEMOGLOBIN 31.3 pg (28-32); MONOCYTES # (AUTO) 0.7 (0.2-0.8); MONOCYTES % 5.7 % (4.4-11.3); NEUTROPHILS # (AUTO) 10.3 (2.1-6.9); NEUTROPHILS % 81.7 % (38.7-80.0); PLATELET COUNT 157 x10e3/uL (140-360); RED BLOOD COUNT 2.97 x10e6/uL (4.3-5.7); RED CELL DISTRIBUTION WIDTH 15.1 % (11.7-14.4); WHITE BLOOD COUNT 12.61 x10e3/uL (4.8-10.8)
[2024-07-26 07:49] LABS: ALBUMIN 1.9 g/dL (3.5-5.0); ALBUMIN/GLOBULIN RATIO 0.4 (0.8-2.0); ANION GAP 11.3 mmol/L (8-16); BILIRUBIN,TOTAL 0.4 mg/dL (0.2-1.2); CALCIUM 9.4 mg/dL (8.4-10.2); CREATININE, SERUM 1.52 mg/dL (0.72-1.25); POTASSIUM 4.3 mmol/L (3.5-5.1); TOTAL PROTEIN 6.2 g/dL (6.5-8.1)
[2024-07-26] MEDS: SODIUM CHLORIDE 0.9% 100 ML ONE (19:23)
[2024-07-27] VITALS (25 sets, daily range): BP systolic 97–139; BP diastolic 55–64; PULSE 65–83; RESP 17–27; TEMP 98.4–99.4; O2SAT 99–100
[2024-07-27 06:56] LABS: BASOPHILS % 0.3 % (0.0-1.0); EOSINOPHILS # (AUTO) 0.5 (0.0-0.4); EOSINOPHILS % 3.9 % (0.0-6.0); HEMATOCRIT 27.8 % (38.2-49.6); HEMOGLOBIN 8.8 g/dL (14.0-18.0); LYMPHOCYTES # (AUTO) 1.1 (1.0-3.2); LYMPHOCYTES % 9.7 % (18.0-39.1); MEAN CORPUSCULAR HEMOGLOBIN 31.4 pg (28-32); MEAN CORPUSCULAR HGB CONC 31.7 g/dL (31-35); MEAN CORPUSCULAR VOLUME 99.3 fL (81-99); MONOCYTES # (AUTO) 0.8 (0.2-0.8); MONOCYTES % 6.8 % (4.4-11.3); NEUTROPHILS # (AUTO) 8.9 (2.1-6.9); NEUTROPHILS % 78.2 % (38.7-80.0); PLATELET COUNT 166 x10e3/uL (140-360); RED CELL DISTRIBUTION WIDTH 15.3 % (11.7-14.4); WHITE BLOOD COUNT 11.42 x10e3/uL (4.8-10.8)
[2024-07-27 07:17] LABS: ALBUMIN 1.9 g/dL (3.5-5.0); ALBUMIN/GLOBULIN RATIO 0.5 (0.8-2.0); BILIRUBIN,TOTAL 0.4 mg/dL (0.2-1.2); CALCIUM 9.3 mg/dL (8.4-10.2); CREATININE, SERUM 1.6 mg/dL (0.72-1.25); TOTAL PROTEIN 6.1 g/dL (6.5-8.1)
[2024-07-27 09:07] LABS: ABG PCO2 36 mmHg (35-45); ABG PH 7.35 (7.35-7.45); ABG PO2 132 mmHg (80-105)
[2024-07-27 09:08] LABS: ABG HCO3 20 mmol/L (22-26); ABG TCO2 21
[2024-07-27] MEDS ORDERED: HEPARIN SOD/DEXTROSE 5% 25000 UNIT/250 ML BAG IV SCH (16:00)
[2024-07-27] MEDS: HEPARIN 25,000 UNIT/D5W 250ML 250 ML IV SCH (16:57)
[2024-07-27] MEDS: HEPARIN SOD (PORCINE) 5,000 UNIT/ML VIAL IV ONE (17:00)
[2024-07-28] VITALS (24 sets, daily range): BP systolic 102–125; BP diastolic 47–67; PULSE 63–97; RESP 16–28; TEMP 97.9–99.4; O2SAT 100
[2024-07-28 06:47] LABS: BASOPHILS # (AUTO) 0.1 (0.0-0.1); BASOPHILS % 0.5 % (0.0-1.0); EOSINOPHILS # (AUTO) 0.6 (0.0-0.4); EOSINOPHILS % 5.9 % (0.0-6.0); HEMATOCRIT 28.3 % (38.2-49.6); HEMOGLOBIN 8.6 g/dL (14.0-18.0); LYMPHOCYTES # (AUTO) 1.7 (1.0-3.2); LYMPHOCYTES % 15.6 % (18.0-39.1); MEAN CORPUSCULAR HEMOGLOBIN 30.7 pg (28-32); MEAN CORPUSCULAR HGB CONC 30.4 g/dL (31-35); MEAN CORPUSCULAR VOLUME 101.1 fL (81-99); MONOCYTES # (AUTO) 0.8 (0.2-0.8); MONOCYTES % 7.2 % (4.4-11.3); NEUTROPHILS # (AUTO) 7.4 (2.1-6.9); NEUTROPHILS % 69.9 % (38.7-80.0); PLATELET COUNT 195 x10e3/uL (140-360); RED CELL DISTRIBUTION WIDTH 15.2 % (11.7-14.4); WHITE BLOOD COUNT 10.65 x10e3/uL (4.8-10.8)
[2024-07-28 07:16] LABS: ALBUMIN 1.9 g/dL (3.5-5.0); ALBUMIN/GLOBULIN RATIO 0.5 (0.8-2.0); ANION GAP 11.8 mmol/L (8-16); BILIRUBIN,TOTAL 0.2 mg/dL (0.2-1.2); CALCIUM 9.1 mg/dL (8.4-10.2); CREATININE, SERUM 1.56 mg/dL (0.72-1.25); POTASSIUM 3.8 mmol/L (3.5-5.1)
[2024-07-29] VITALS (29 sets, daily range): BP systolic 98–165; BP diastolic 50–134; PULSE 78–114; RESP 15–34; TEMP 98.4–99.3; O2SAT 96–100
[2024-07-29 06:26] LABS: BASOPHILS % 0.3 % (0.0-1.0); EOSINOPHILS # (AUTO) 0.5 (0.0-0.4); EOSINOPHILS % 5.5 % (0.0-6.0); HEMATOCRIT 27.6 % (38.2-49.6); HEMOGLOBIN 8.6 g/dL (14.0-18.0); LYMPHOCYTES # (AUTO) 1.2 (1.0-3.2); LYMPHOCYTES % 12.9 % (18.0-39.1); MEAN CORPUSCULAR HEMOGLOBIN 30.9 pg (28-32); MEAN CORPUSCULAR HGB CONC 31.2 g/dL (31-35); MEAN CORPUSCULAR VOLUME 99.3 fL (81-99); MONOCYTES # (AUTO) 0.9 (0.2-0.8); MONOCYTES % 9.2 % (4.4-11.3); NEUTROPHILS # (AUTO) 6.8 (2.1-6.9); NEUTROPHILS % 71.1 % (38.7-80.0); PLATELET COUNT 227 x10e3/uL (140-360); RED BLOOD COUNT 2.78 x10e6/uL (4.3-5.7); RED CELL DISTRIBUTION WIDTH 15.2 % (11.7-14.4); WHITE BLOOD COUNT 9.55 x10e3/uL (4.8-10.8)
[2024-07-29 06:56] LABS: ALBUMIN/GLOBULIN RATIO 0.5 (0.8-2.0); ANION GAP 13.4 mmol/L (8-16); BILIRUBIN,TOTAL 0.3 mg/dL (0.2-1.2); CALCIUM 9.3 mg/dL (8.4-10.2); CREATININE, SERUM 1.78 mg/dL (0.72-1.25); POTASSIUM 4.4 mmol/L (3.5-5.1); TOTAL PROTEIN 6.3 g/dL (6.5-8.1)
[2024-07-29] MEDS: DEXTROSE 5%/0.45% SOD CHL 1,000 ML IV SCH (10:28)
[2024-07-29] MEDS ORDERED: SODIUM CHLORIDE 0.9% 100 ML ONE (14:30)
[2024-07-29] MEDS ORDERED: MIDAZOLAM HCL 2 MG/2 ML VIAL ONE (14:30)
[2024-07-29] MEDS ORDERED: PROPOFOL IV EMULSION 10 MG/ML 20 ML VIAL ONE (14:30)
[2024-07-29] MEDS ORDERED: FENTANYL CITRATE/PF 100MCG/2 ML INJ ONE (14:30)
[2024-07-29] MEDS: SODIUM CHLORIDE 0.9% 1000ML 1,000 ML IV SCH (16:47)
[2024-07-29] MEDS ORDERED: SEVOFLURANE INHAL SOLN 250 ML PEN BTL ONE (17:01)
[2024-07-29] MEDS ORDERED: EPHEDRINE SULFATE INJ 50 MG/ML VIAL ONE (17:02)
[2024-07-29] MEDS ORDERED: DEXAMETHASONE SOD PHOS INJ 4 MG/ML SDV ONE (17:02)
[2024-07-30] VITALS (34 sets, daily range): BP systolic 119–152; BP diastolic 56–74; PULSE 86–115; RESP 22–39; TEMP 98.2–99.5; O2SAT 97–100
[2024-07-30 06:33] LABS: BASOPHILS % 0.4 % (0.0-1.0); EOSINOPHILS # (AUTO) 0.2 (0.0-0.4); EOSINOPHILS % 2.4 % (0.0-6.0); HEMATOCRIT 28.2 % (38.2-49.6); HEMOGLOBIN 8.7 g/dL (14.0-18.0); LYMPHOCYTES # (AUTO) 0.7 (1.0-3.2); MEAN CORPUSCULAR HEMOGLOBIN 31.6 pg (28-32); MEAN CORPUSCULAR HGB CONC 30.9 g/dL (31-35); MEAN CORPUSCULAR VOLUME 102.5 fL (81-99); MONOCYTES # (AUTO) 0.9 (0.2-0.8); MONOCYTES % 8.6 % (4.4-11.3); NEUTROPHILS # (AUTO) 7.9 (2.1-6.9); NEUTROPHILS % 80.7 % (38.7-80.0); PLATELET COUNT 225 x10e3/uL (140-360); RED BLOOD COUNT 2.75 x10e6/uL (4.3-5.7); RED CELL DISTRIBUTION WIDTH 15.4 % (11.7-14.4); WHITE BLOOD COUNT 9.84 x10e3/uL (4.8-10.8)
[2024-07-30 07:14] LABS: ANION GAP 14.7 mmol/L (8-16); BILIRUBIN,TOTAL 0.4 mg/dL (0.2-1.2); CALCIUM 9.1 mg/dL (8.4-10.2); CREATININE, SERUM 1.72 mg/dL (0.72-1.25); POTASSIUM 4.7 mmol/L (3.5-5.1); TOTAL PROTEIN 6.4 g/dL (6.5-8.1)
[2024-07-30 07:28] LABS: ALBUMIN/GLOBULIN RATIO 0.5 (0.8-2.0)
[2024-07-30 13:33] LABS: ABG HCO3 20 mmol/L (22-26); ABG PCO2 38 mmHg (35-45); ABG PH 7.33 (7.35-7.45); ABG PO2 127 mmHg (80-105); ABG TCO2 21
[2024-07-31] VITALS (29 sets, daily range): BP systolic 108–141; BP diastolic 52–77; PULSE 93–109; RESP 19–38; TEMP 99–100.4; O2SAT 95–100
[2024-07-31 06:47] LABS: BASOPHILS # (AUTO) 0.1 (0.0-0.1); BASOPHILS % 0.5 % (0.0-1.0); EOSINOPHILS # (AUTO) 0.4 (0.0-0.4); EOSINOPHILS % 3.9 % (0.0-6.0); HEMATOCRIT 28.8 % (38.2-49.6); HEMOGLOBIN 8.8 g/dL (14.0-18.0); LYMPHOCYTES # (AUTO) 1.2 (1.0-3.2); MEAN CORPUSCULAR HEMOGLOBIN 31.2 pg (28-32); MEAN CORPUSCULAR HGB CONC 30.6 g/dL (31-35); MEAN CORPUSCULAR VOLUME 102.1 fL (81-99); MONOCYTES # (AUTO) 1.2 (0.2-0.8); NEUTROPHILS # (AUTO) 7.8 (2.1-6.9); NEUTROPHILS % 72.3 % (38.7-80.0); PLATELET COUNT 244 x10e3/uL (140-360); RED BLOOD COUNT 2.82 x10e6/uL (4.3-5.7); RED CELL DISTRIBUTION WIDTH 15.5 % (11.7-14.4); WHITE BLOOD COUNT 10.75 x10e3/uL (4.8-10.8)
[2024-07-31 07:19] LABS: ALBUMIN/GLOBULIN RATIO 0.4 (0.8-2.0); ANION GAP 13.4 mmol/L (8-16); BILIRUBIN,TOTAL 0.5 mg/dL (0.2-1.2); CALCIUM 9.5 mg/dL (8.4-10.2); CREATININE, SERUM 1.99 mg/dL (0.72-1.25); POTASSIUM 4.4 mmol/L (3.5-5.1); TOTAL PROTEIN 6.6 g/dL (6.5-8.1)
[2024-07-31] MEDS ORDERED: HEPARIN SOD/DEXTROSE 5% 25000 UNIT/250 ML BAG IV SCH (11:15)
[2024-07-31] MEDS: SODIUM CHLORIDE 0.45% 1,000 ML IV ONE (11:38)
[2024-07-31] MEDS: Doxycycline IV 100 MG in SODIUM CHLORIDE 0.9% 100 ML IV SCH (11:38)
[2024-07-31] MEDS: HEPARIN 25,000 UNIT/D5W 250ML 250 ML IV SCH (12:27)
[2024-07-31] MEDS: ACETYLCYSTEINE 200 MG/ML 4 ML VIAL INH SCH (13:49)
[2024-08-01] VITALS (25 sets, daily range): BP systolic 109–148; BP diastolic 52–92; PULSE 78–95; RESP 14–32; TEMP 97.6–100; O2SAT 98–100
[2024-08-01 06:49] LABS: BASOPHILS # (AUTO) 0.1 (0.0-0.1); BASOPHILS % 0.5 % (0.0-1.0); EOSINOPHILS # (AUTO) 0.8 (0.0-0.4); EOSINOPHILS % 7.8 % (0.0-6.0); HEMATOCRIT 25.7 % (38.2-49.6); LYMPHOCYTES # (AUTO) 1.4 (1.0-3.2); LYMPHOCYTES % 14.2 % (18.0-39.1); MEAN CORPUSCULAR HEMOGLOBIN 31.1 pg (28-32); MEAN CORPUSCULAR HGB CONC 30.4 g/dL (31-35); MEAN CORPUSCULAR VOLUME 102.4 fL (81-99); MONOCYTES # (AUTO) 1.1 (0.2-0.8); MONOCYTES % 10.5 % (4.4-11.3); NEUTROPHILS # (AUTO) 6.6 (2.1-6.9); NEUTROPHILS % 64.7 % (38.7-80.0); PLATELET COUNT 265 x10e3/uL (140-360); RED BLOOD COUNT 2.51 x10e6/uL (4.3-5.7); RED CELL DISTRIBUTION WIDTH 15.6 % (11.7-14.4); WHITE BLOOD COUNT 10.13 x10e3/uL (4.8-10.8)
[2024-08-01 06:56] LABS: HEMOGLOBIN 7.8 g/dL (14.0-18.0)
[2024-08-01 07:21] LABS: ALBUMIN 1.8 g/dL (3.5-5.0); ALBUMIN/GLOBULIN RATIO 0.4 (0.8-2.0); ANION GAP 9.7 mmol/L (8-16); BILIRUBIN,TOTAL 0.5 mg/dL (0.2-1.2); CALCIUM 9.3 mg/dL (8.4-10.2); CREATININE, SERUM 2.33 mg/dL (0.72-1.25); POTASSIUM 3.7 mmol/L (3.5-5.1); TOTAL PROTEIN 5.9 g/dL (6.5-8.1)
[2024-08-01] MEDS: LACTATED RINGER'S 1,000 ML INJ ONE (15:12)
[2024-08-02] VITALS (29 sets, daily range): BP systolic 98–151; BP diastolic 54–77; PULSE 84–102; RESP 8–29; TEMP 97.8–100; O2SAT 92–100
[2024-08-02 06:37] LABS: BASOPHILS % 0.3 % (0.0-1.0); EOSINOPHILS % 9.7 % (0.0-6.0); HEMATOCRIT 25.5 % (38.2-49.6); HEMOGLOBIN 7.8 g/dL (14.0-18.0); LYMPHOCYTES # (AUTO) 1.3 (1.0-3.2); LYMPHOCYTES % 12.9 % (18.0-39.1); MEAN CORPUSCULAR HEMOGLOBIN 31.1 pg (28-32); MEAN CORPUSCULAR HGB CONC 30.6 g/dL (31-35); MEAN CORPUSCULAR VOLUME 101.6 fL (81-99); MONOCYTES % 9.9 % (4.4-11.3); NEUTROPHILS # (AUTO) 6.3 (2.1-6.9); NEUTROPHILS % 62.6 % (38.7-80.0); PLATELET COUNT 262 x10e3/uL (140-360); RED BLOOD COUNT 2.51 x10e6/uL (4.3-5.7); RED CELL DISTRIBUTION WIDTH 15.3 % (11.7-14.4); WHITE BLOOD COUNT 10.02 x10e3/uL (4.8-10.8)
[2024-08-02 06:53] LABS: ALBUMIN 1.7 g/dL (3.5-5.0); ALBUMIN/GLOBULIN RATIO 0.4 (0.8-2.0); ANION GAP 12.8 mmol/L (8-16); BILIRUBIN,TOTAL 0.4 mg/dL (0.2-1.2); CALCIUM 9.3 mg/dL (8.4-10.2); CREATININE, SERUM 2.21 mg/dL (0.72-1.25); MAGNESIUM 1.9 MG/DL (1.3-2.1); POTASSIUM 3.8 mmol/L (3.5-5.1)
[2024-08-03] VITALS (30 sets, daily range): BP systolic 108–161; BP diastolic 53–109; PULSE 79–104; RESP 17–31; TEMP 98–99; O2SAT 95–100
[2024-08-04] VITALS (29 sets, daily range): BP systolic 92–149; BP diastolic 59–90; PULSE 68–117; RESP 16–33; TEMP 98.4–100.4; O2SAT 99–100
[2024-08-05] VITALS (27 sets, daily range): BP systolic 99–149; BP diastolic 47–102; PULSE 82–104; RESP 15–29; TEMP 97.2–99.6; O2SAT 98–100
[2024-08-05 06:48] LABS: BASOPHILS # (AUTO) 0.1 (0.0-0.1); BASOPHILS % 0.6 % (0.0-1.0); EOSINOPHILS % 6.3 % (0.0-6.0); HEMATOCRIT 26.5 % (38.2-49.6); HEMOGLOBIN 8.3 g/dL (14.0-18.0); LYMPHOCYTES # (AUTO) 2.1 (1.0-3.2); LYMPHOCYTES % 13.9 % (18.0-39.1); MEAN CORPUSCULAR HEMOGLOBIN 31.1 pg (28-32); MEAN CORPUSCULAR HGB CONC 31.3 g/dL (31-35); MEAN CORPUSCULAR VOLUME 99.3 fL (81-99); MONOCYTES # (AUTO) 1.3 (0.2-0.8); MONOCYTES % 8.8 % (4.4-11.3); NEUTROPHILS # (AUTO) 8.8 (2.1-6.9); NEUTROPHILS % 58.2 % (38.7-80.0); PLATELET COUNT 300 x10e3/uL (140-360); RED BLOOD COUNT 2.67 x10e6/uL (4.3-5.7); RED CELL DISTRIBUTION WIDTH 15.6 % (11.7-14.4); WHITE BLOOD COUNT 15.05 x10e3/uL (4.8-10.8)
[2024-08-05 07:15] LABS: ALBUMIN 1.8 g/dL (3.5-5.0); ALBUMIN/GLOBULIN RATIO 0.4 (0.8-2.0); ANION GAP 12.1 mmol/L (8-16); BILIRUBIN,TOTAL 0.3 mg/dL (0.2-1.2); CALCIUM 9.7 mg/dL (8.4-10.2); CREATININE, SERUM 1.77 mg/dL (0.72-1.25); POTASSIUM 4.1 mmol/L (3.5-5.1); TOTAL PROTEIN 6.3 g/dL (6.5-8.1)
[2024-08-05 07:42] LABS: BAND NEUTROPHILS % (MANUAL) 2 %; EOSINOPHILS % (MANUAL) 4 % (0-7); LYMPHOCYTES % (MANUAL) 16 % (19-48); METAMYELOCYTES % (MANUAL) 2 % (0-0); MONOCYTES % (MANUAL) 5 % (3.4-9.0); MYELOCYTES % (MANUAL) 12 % (0-0); NEUTROPHILS % (MANUAL) 59 % (40-74); PLATELET ESTIMATE ADEQUATE; PLATELET MORPHOLOGY COMMENT NORMAL
[2024-08-05 07:43] LABS: RBC MORPHOLOGY COMMENT NORMAL
[2024-08-05] MEDS: SODIUM CHLORIDE 0.45% 1,000 ML IV ONE (08:39)
[2024-08-05] MEDS: HEPARIN 25,000 UNIT/D5W 250ML 250 ML IV SCH (13:48)
[2024-08-05] MEDS: APIXABAN 5 MG TABLET PO SCH (16:29)
[2024-08-06] VITALS (10 sets, daily range): BP systolic 108–138; BP diastolic 55–76; PULSE 87–105; RESP 20–24; O2SAT 99–100
[2024-08-10 05:50] LABS: ABG HCO3 20 mmol/L (22-26); ABG PCO2 36 mmHg (35-45); ABG PH 7.35 (7.35-7.45); ABG PO2 132 mmHg (80-105); ABG TCO2 21
[2024-08-10 05:50] LABS: ABG HCO3 20 mmol/L (22-26); ABG PCO2 38 mmHg (35-45); ABG PH 7.33 (7.35-7.45); ABG PO2 127 mmHg (80-105); ABG TCO2 21
== END 2024-08-06 08:29 | disposition hospice, inpatient (51) | DRG 4 ==
LOC: ER 09:25 → ERHOLD 12:21 → MED/SURG2 13:20 → ICU 20:49
PROVIDERS: ADMIT Internal Medicine; ATTEND Internal Medicine
PROC: 0BH17EZ Insertion of Endotracheal Airway into Trachea, Via Natural or Artificial Opening (ICD-10-PCS; 2024-07-07)
PROC: 5A0945A Assistance with Respiratory Ventilation, 24-96 Consecutive Hours, High Flow/Velocity Cannula (ICD-10-PCS; 2024-07-07)
PROC: 3E033XZ Introduction of Vasopressor into Peripheral Vein, Percutaneous Approach (ICD-10-PCS; 2024-07-07)
PROC: 02HV33Z Insertion of Infusion Device into Superior Vena Cava, Percutaneous Approach (ICD-10-PCS; 2024-07-08)
PROC: B548ZZA Ultrasonography of Superior Vena Cava, Guidance (ICD-10-PCS; 2024-07-08)
PROC: 3E04329 Introduction of Other Anti-infective into Central Vein, Percutaneous Approach (ICD-10-PCS; 2024-07-08)
PROC: 4A033R1 Measurement of Arterial Saturation, Peripheral, Percutaneous Approach (ICD-10-PCS; 2024-07-09)
PROC: 5A0935A Assistance with Respiratory Ventilation, Less than 24 Consecutive Hours, High Flow/Velocity Cannula (ICD-10-PCS; 2024-07-10)
PROC: 5A1955Z Respiratory Ventilation, Greater than 96 Consecutive Hours (ICD-10-PCS; 2024-07-11)
PROC: 4A033R1 Measurement of Arterial Saturation, Peripheral, Percutaneous Approach (ICD-10-PCS; 2024-07-11)
PROC: 4A033R1 Measurement of Arterial Saturation, Peripheral, Percutaneous Approach (ICD-10-PCS; 2024-07-12)
PROC: 4A033R1 Measurement of Arterial Saturation, Peripheral, Percutaneous Approach (ICD-10-PCS; 2024-07-13)
PROC: 02HV33Z Insertion of Infusion Device into Superior Vena Cava, Percutaneous Approach (ICD-10-PCS; 2024-07-16)
PROC: B548ZZA Ultrasonography of Superior Vena Cava, Guidance (ICD-10-PCS; 2024-07-16)
PROC: 0BH17EZ Insertion of Endotracheal Airway into Trachea, Via Natural or Artificial Opening (ICD-10-PCS; 2024-07-29)
PROC: 0DH63UZ Insertion of Feeding Device into Stomach, Percutaneous Approach (ICD-10-PCS; 2024-07-29)
PROC: 0B110Z4 Bypass Trachea to Cutaneous, Open Approach (ICD-10-PCS; principal; 2024-07-29 14:15)
PROC: 3E0G76Z Introduction of Nutritional Substance into Upper GI, Via Natural or Artificial Opening (ICD-10-PCS; 2024-07-31)
DX: A41.9 Sepsis, unspecified organism (principal); J96.01 Acute respiratory failure with hypoxia; G93.41 Metabolic encephalopathy; J15.7 Pneumonia due to Mycoplasma pneumoniae; N17.0 Acute kidney failure with tubular necrosis; J69.0 Pneumonitis due to inhalation of food and vomit; G92.8 Other toxic encephalopathy; Z99.11 Dependence on respirator [ventilator] status; E87.20 Acidosis, unspecified; D84.821 Immunodeficiency due to drugs; I82.A13 Acute embolism and thrombosis of axillary vein, bilateral; I82.B12 Acute embolism and thrombosis of left subclavian vein; I82.622 Acute embolism and thrombosis of deep veins of left upper extremity; I82.613 Acute embolism and thrombosis of superficial veins of upper extremity, bilateral; E87.0 Hyperosmolality and hypernatremia; F02.811 Dementia in other diseases classified elsewhere, unspecified severity, with agitation; E44.0 Moderate protein-calorie malnutrition; T82.868A Thrombosis due to vascular prosthetic devices, implants and grafts, initial encounter; R65.20 Severe sepsis without septic shock; J84.112 Idiopathic pulmonary fibrosis; J92.0 Pleural plaque with presence of asbestos; Z87.891 Personal history of nicotine dependence; K21.9 Gastro-esophageal reflux disease without esophagitis; G47.33 Obstructive sleep apnea (adult) (pediatric); N40.0 Benign prostatic hyperplasia without lower urinary tract symptoms; T45.1X5A Adverse effect of antineoplastic and immunosuppressive drugs, initial encounter; Z79.69 Long term (current) use of other immunomodulators and immunosuppressants; D63.8 Anemia in other chronic diseases classified elsewhere; E66.811 Obesity, class 1; Z68.33 Body mass index [BMI] 33.0-33.9, adult; Z71.3 Dietary counseling and surveillance; J84.178 Other interstitial pulmonary diseases with fibrosis in diseases classified elsewhere; Z91.198 Patient's noncompliance with other medical treatment and regimen for other reason; I35.0 Nonrheumatic aortic (valve) stenosis; M05.79 Rheumatoid arthritis with rheumatoid factor of multiple sites without organ or systems involvement; Z51.5 Encounter for palliative care; Z66 Do not resuscitate; E87.6 Hypokalemia; I12.9 Hypertensive chronic kidney disease with stage 1 through stage 4 chronic kidney disease, or unspecified chronic kidney disease; N18.9 Chronic kidney disease, unspecified; D72.829 Elevated white blood cell count, unspecified; Y95 Nosocomial condition; G31.9 Degenerative disease of nervous system, unspecified; Z78.1 Physical restraint status; F43.10 Post-traumatic stress disorder, unspecified; E86.1 Hypovolemia; R53.81 Other malaise; Z77.098 Contact with and (suspected) exposure to other hazardous, chiefly nonmedicinal, chemicals; Z11.52 Encounter for screening for COVID-19; Y84.8 Other medical procedures as the cause of abnormal reaction of the patient, or of later complication, without mention of misadventure at the time of the procedure; Y92.230 Patient room in hospital as the place of occurrence of the external cause; Z71.81 Spiritual or religious counseling; Z79.899 Other long term (current) drug therapy; Z79.82 Long term (current) use of aspirin
CPT/HCPCS: 31500; 36415; 36569; 36600; 70450; 70551; 71045; 71046; 71260; 74018; 74177; 76770; 80048; 80053; 81001; 81015; 82140; 82607; 82805; 82948; 83605; 83735; 83880; 84443; 84484; 85025; 85730; 86039; 86140; 86235; 86431; 86631; 86738; 87040; 87070; 87205; 87449; 93005; 93306; 93970; 93971; 94002; 94003; 94640; 94660; 94667; 94668; 94669; 94799; 95822; 96372; 99252; 99284; J0330; J0360; J0690; J0692; J0696; J1100; J1644; J1650; J1940; J2060; J2250; J2470; J2919; J3411; J3475; J3480; J7030; J7050; J7070; P9047; Q9967